=== PATIENT | female | born 1965 | race Caucasian/White ===

== ENCOUNTER 2017-02-09 06:54 | Day surgery (SDC) | payer MEDICAID, BC ==
[2017-02-06 13:49] VITALS: BMI 32.5
[~2017-02-09 06:54] MED LIST: LACTATED RINGERS 1,000 ML IV SCH
[2017-02-09 07:06] VITALS: TEMP 98.7
[2017-02-09] MEDS ORDERED: LIDOCAINE 1% 20 ML VIAL (10MG/ML) FOR IV START SQ ONE (07:12)
[2017-02-09 07:32] LABS: Glucose,Whole Blood 189 mg/dL (75-99)
[2017-02-09 07:32] LABS: Glucose,Whole Blood 185 mg/dL (75-99)
[2017-02-09] MEDS ORDERED: PROPOFOL 10 MG/ML 20 ML VIAL IV ONE (07:37)
[2017-02-09 08:03] VITALS: RESP 18
--- NOTE | 2017-02-09 08:03 | P.PCN ---
Date of Procedure: 02/09/17 Procedure(s) Performed: BRIEF HISTORY: Patient is a 51-year-old pleasant and white female, scheduled for an elective colonoscopy as a part of screening for colon neoplasia. PROCEDURE PERFORMED: Colonoscopy. PREOPERATIVE DIAGNOSIS: Screening for colon cancer. IV sedation per Anesthesia. PROCEDURE: After informed consent was obtained, the patient, was brought into the endoscopy unit. IV sedation was administered by Anesthesia under continuous monitoring. Digital rectal examination was normal. Initially the Olympus CF- 160 flexible video colonoscope was then inserted in the rectum, gradually advanced into the cecum without any difficulty. Careful examination was performed as the scope was gradually being withdrawn. Ileocecal valve and the appendiceal orifice were visualized and appeared normal. Prep was excellent. Mucosa of the cecum, ascending colon, transverse colon, descending colon, sigmoid colon, and rectum appeared normal. Retroflexion was performed in the rectum and no lesions were seen. The patient tolerated the procedure well. IMPRESSION: Normal-appearing colon from rectum to cecum with no evidence of colorectal neoplasia. RECOMMENDATIONS: Findings of this examination were discussed with the patient as well as a family. She was advised to have a repeat screening colonoscopy in 10 years.
[2017-02-09 08:18] VITALS: BP 132/74; PULSE 88
== END 2017-02-09 08:54 | disposition home or self-care (01) ==
LOC: ORWHC2ENDO 06:54
PROVIDERS: ATTEND Internal Medicine Gastroenterology
DX: Z12.11 Encounter for screening for malignant neoplasm of colon (principal); I10 Essential (primary) hypertension; E78.5 Hyperlipidemia, unspecified; E11.9 Type 2 diabetes mellitus without complications; Z79.84 Long term (current) use of oral hypoglycemic drugs; Z79.82 Long term (current) use of aspirin; Z79.899 Other long term (current) drug therapy; Z88.0 Allergy status to penicillin
CPT/HCPCS: J2704; G0121

== ENCOUNTER → 2017-02-12 | Outpatient (CLI) | payer MEDICAID, BC ==
--- NOTE | 2017-02-13 11:14 | MM ---
Reason for exam: screening (asymptomatic). Last mammogram was performed 1 year ago. History: Patient is postmenopausal. Family history of premenopausal breast cancer in mother at age 50 and breast cancer in maternal aunt at age 40. Took hormonal contraceptives for 1 year beginning at age 22. Physical Findings: A clinical breast exam by your physician is recommended on an annual basis and results should be correlated with mammographic findings. MG 3D Screening Mammo W/Cad Bilateral CC and MLO view(s) were taken. Prior study comparison: February 18, 2016, left breast MG work up mamm w CAD LT. February 11, 2016, bilateral MG screening mammo w CAD. There are scattered fibroglandular densities. There is no discrete abnormality. No significant changes when compared with prior studies. ASSESSMENT: Negative, BI-RAD 1 RECOMMENDATION: Routine screening mammogram of both breasts in 1 year.
== END | disposition home or self-care (01) ==
LOC: RADMAMWWP 07:59
PROVIDERS: ATTEND Internal Medicine Geriatric Medicine
DX: Z12.31 Encounter for screening mammogram for malignant neoplasm of breast (principal)
CPT/HCPCS: 77063; G0202

== ENCOUNTER → 2017-02-27 | Outpatient (CLI) | payer MEDICAID, BC ==
--- NOTE | 2017-02-27 07:48 | MR ---
EXAMINATION TYPE: MR knee LT wo con DATE OF EXAM: 02/27/2017 COMPARISON: 05/16/2011 HISTORY: pain in lt knee TECHNIQUE: Multiplanar, multisequence imaging of the left knee is performed without IV contrast. FINDINGS: MEDIAL MENISCUS: Globular signal posterior horn medial meniscus most typical of mucoid degeneration. Fibrillation of the femoral articular cartilage. LATERAL MENISCUS: Linear tear posterior horn medial meniscus. Fibrillation articular lateral femoral cartilage. CRUCIATE LIGAMENTS: The anterior and posterior cruciate ligaments are intact and unremarkable. COLLATERAL LIGAMENTS: The medial collateral ligament and lateral collateral ligament complex are inta ct and unremarkable. EXTENSOR MECHANISM: There is a [id number] suprapatellar bursal fluid collection. Thinning and chondromalacia patellar cartilage involving the medial and lateral retinaculum greater medially. Intr asubstance signal within the distal margin of the patellar tendon suggests mild patellar tendinitis n ear the insertion of the tibia. Markedly improved from the previous exam. EFFUSION: Small to moderate suprapatellar bursal fluid collection POPLITEAL CYST: No popliteal/ballesteros cyst. BONE MARROW SIGNAL: No focal abnormal marrow signal is appreciated. IMPRESSION: 1. Linear tear posterior horn medial meniscus 2. Chondromalacia involving the articular femoral and patellofemoral joint with evidence of osteoarth ritis. 3. Marked improvement of appearance of the patellar tendon with some residual intrasubstance tear whi ch may been the basis of chronic tendinopathy near the tibial insertion. Correlate clinically. 4. Correlate for medial plica syndrome
== END | disposition home or self-care (01) ==
LOC: RADMRIMAIN 06:29
PROVIDERS: ATTEND Orthopaedic Surgery Sports Medicine
DX: M25.462 Effusion, left knee (principal); M25.562 Pain in left knee

== ENCOUNTER 2017-03-29 09:54 | Day surgery (SDC) | payer MEDICAID, BC ==
[~2017-03-29 09:54] MED LIST changes: +DEXAMETHASONE SOD PHOSPHATE 10 MG/ML 1 ML VIAL IV ONE; +MIDAZOLAM 2 MG/2 ML VIAL IV PRN; +ONDANSETRON 4 MG/2 ML VIAL IVP ONE; +Pre Op ABX Message 1 EACH MISC MISCELLANE ONE
[2017-03-29 10:22] VITALS: TEMP 98.2
[2017-03-29] MEDS ORDERED: LIDOCAINE 1% 20 ML VIAL (10MG/ML) FOR IV START INTRADERMA ONE (10:36)
[2017-03-29 10:37] LABS: Glucose,Whole Blood 199 mg/dL (75-99)
[2017-03-29] MEDS ORDERED: SCOPOLAMINE 1.5MG/72HR PATCH TRANSDERM ONE (10:41)
[2017-03-29] MEDS ORDERED: NEOSTIGMINE 1 MG/ML 10 ML VIAL ONE (11:26)
[2017-03-29] MEDS ORDERED: GLYCOPYRROLATE 0.2 MG/ML 2 ML VIAL ONE (11:26)
[2017-03-29] MEDS ORDERED: LIDOCAINE 1% INJ 10MG/ML (20 ML MDV) ONE (11:26)
[2017-03-29] MEDS ORDERED: MIDAZOLAM 2 MG/2 ML VIAL ONE (11:26)
[2017-03-29] MEDS ORDERED: fentaNYL (PF) 50 MCG/ML 2 ML AMP ONE (11:26)
[2017-03-29] MEDS ORDERED: ROCURONIUM BROMIDE 10 MG/ML 10 ML VIAL IV ONE (11:26)
[2017-03-29] MEDS ORDERED: SUCCINYLCHOLINE CHLORIDE 100 MG/5 ML SYR IV ONE (11:26)
[2017-03-29] MEDS ORDERED: PROPOFOL 10 MG/ML 20 ML VIAL IV ONE (11:26)
[2017-03-29] MEDS ORDERED: SODIUM CHLORIDE 0.9% 50 ML with CLINDAMYCIN 900 MG IV ONE ×2 (11:48)
[2017-03-29] MEDS ORDERED: BUPIVACAIN-EPI 0.5%-1:200,000 30 ML VIAL SQ ONE ×2 (11:50→12:02)
[2017-03-29] MEDS ORDERED: KETOROLAC 30 MG/ML 1 ML VIAL IVP ONE (12:36)
[2017-03-29] MEDS ORDERED: LACTATED RINGERS 1,000 ML IV ONE (12:43)
[2017-03-29] MEDS: HYDROmorphone 1 MG/ML 1 ML SYRINGE IVP PRN ×2 (12:50→12:55)
[2017-03-29 13:32] VITALS: RESP 16
[2017-03-29 14:01] VITALS: BP 146/86; PULSE 97
--- NOTE | 2017-04-05 19:07 | OP ---
DATE OF PROCEDURE: 03/29/2017 PREOPERATIVE DIAGNOSIS: Left knee medial meniscus tear. POSTOPERATIVE DIAGNOSES: 1. Left knee medial meniscus tear. 2. Left knee lateral meniscus tear. 3. Left knee second infrapatellar plica. 4. 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 PROCEDURES PERFORMED: 1. Left knee arthroscopic partial medial meniscectomy. 2. Left knee arthroscopic partial lateral meniscectomy. 3. Left knee arthroscopic lysis of adhesions. 4. Left knee chondroplasty of the medial femoral condyle. SURGEON: Omar Mercer MD ANESTHESIA: General endotracheal. ESTIMATED BLOOD LOSS: Minimal. TOURNIQUET: None. DRAINS: None. COMPLICATIONS: None apparent. DISPOSITION: Post Anesthesia Care Unit. INDICATIONS: Josseline is a very pleasant 51-year-old female who had a twisting injury to her left knee. Physical examination and MRI were consistent with tearing of the medial meniscus. A long discussion was held with regard to treatment options. At this point, she does wish to proceed with operative intervention. The risks were explained to the patient which include but are not limited to risk of infection, nerve damage, bleeding, pain and a small risk of deep vein thrombosis which could lead to fatal pulmonary embolism. The patient understands these risks and wishes to proceed with the surgical procedure. EXAMINATION UNDER ANESTHESIA: Range of motion: right full, left full. Effusion: right none, left mild. Darius: right with good end point, left with good endpoint. Pivot shift: right grade 0, left grade 0. Posterior drawer: right with good endpoint, left with good end point. Varus laxity: right none, left none. Valgus laxity: right none, left none. External rotation: right normal, left normal. ARTHROSCOPIC FINDINGS: ( ) patellar pouch: Normal. Medial gutter: Normal. Lateral gutter: Normal. Patella: Diffuse grade 1 change. Trochlea head: Diffuse grade 2 change in the central aspect of the trochlea. Patellar tracking: Normal. Medial femoral condyle: Diffuse area of grade 2 to 3 change on the ( ) surface of the medial femoral condyle. Medial tibial plateau: Normal chondral surfaces. Medial meniscus: Complex tear of the posterior horn of the medial meniscus. Lateral femoral condyle: Diffuse grade 2 change. Lateral tibial plateau: Diffuse grade 2 change. Lateral meniscus: Complex tear of the posterior horn of the lateral meniscus. Anterior cruciate ligament: Normal. Posterior cruciate ligament: Normal. Infrapatellar notch: Thickened infrapatellar plica. DETAILS OF PROCEDURE: The patient was identified in the preoperative holding area. Surgical site was marked by both the patient and myself. She was given 2 grams of Ancef IV for prophylactic purposes. She was then transferred to the operative suite, where she was placed supine on the operating room table. General anesthetic was then administered and dosed by the anesthesia department without apparent complications. An examination under anesthesia was then performed of both knees. The findings were noted as above. Tourniquet was then placed high on the left upper thigh, well padded in preparation for surgery. The tourniquet was not inflated throughout the entire procedure. The patient's left lower extremity was then prepped and draped in the usual sterile fashion. Standard surgical pause was then undertaken to ensure that we were operating on the correct site and that appropriate preoperative antibiotics had been given. All staff in the room were in agreement and we proceeded. The knee was then insufflated with 120 mL sterile saline solution. This was done to gradually distend the joint. A standard inferolateral portal was then made. A 30-degree arthroscope was introduced into the suprapatellar pouch. The arthroscopic pump pressure was set at 60 mmHg and maintained at that level throughout the entire case. Next, utilizing an 18 gauge spinal needle, we topically localized the placement. The inferomedial portal was made under direct visualization. Standard diagnostic arthroscopy of the knee was then performed. The findings were noted as above. Attention was then first drawn to the infrapatellar notch. There was very thickened infrapatellar plica. This was released with a biter and debrided back to stable tissue utilizing a synovial shaver. Hemostasis was achieved with an Arthrocare wand. Attention was then drawn to the lateral compartment. She had a macerated, degenerative-type tear of the posterior horn of the lateral meniscus. This was through the white-white zone of the meniscus. This tear was deemed irreparable. This meniscus tear was then debrided back to stable tissue utilizing a combination of biter and synovial shaver. Appropriately 50% of the posterior horn and middle body of the lateral meniscus remained intact after the debridement. The anterior and posterior root attachments were carefully inspected and found to be intact. Attention was then drawn to the medial compartment of the knee. She had diffuse grade 2 to 3 chondromalacia at the medial femoral condyle. There were no areas of grade 4 change. This was on the weight-bearing surface. There were some loose chondral flaps noted about. These were gently debrided using the synovial shaver back to stable cartilage tissue. Attention was then drawn to the medial meniscus. She had a complex tear of the posterior horn of the medial meniscus. There was a fairly sizeable flap tear. It was very degenerative in nature. This tear was also deemed irreparable. The meniscus tear was then debrided back to stable tissue utilizing a combination of biter and synovial shaver. Approximately 25% to 50% of the posterior horn of the medial meniscus remained intact after debridement. The anterior and posterior root attachments were carefully inspected and found to be intact. Next I placed the arthroscope medial to the posterior cruciate ligament through the notch into the posteromedial compartment of the knee. There were no surgical flap tears or loose bodies noted. The posterior root attachment was more carefully inspected and found to be intact. At this point in time, no further examination was deemed necessary. The knee was surgically irrigated and then drained with an outflow cannula. The arthroscopic equipment was removed from the knee. The arthroscopic portals were closed with 3-0 nylon interrupted suture. Sterile compressive dressing was then applied. All sponge and needle counts were deemed correct prior to closure. The patient tolerated the procedure without apparent complication. The tourniquet was not inflated throughout the procedure. She was transferred to the recovery room in stable condition. ISMAEL
== END 2017-03-29 14:24 | disposition home or self-care (01) ==
LOC: OR 09:54
PROVIDERS: ATTEND Orthopaedic Surgery Sports Medicine
DX: S83.242A Other tear of medial meniscus, current injury, left knee, initial encounter (principal); S83.282A Other tear of lateral meniscus, current injury, left knee, initial encounter; X50.1XXA Overexertion from prolonged static or awkward postures, initial encounter; M67.52 Plica syndrome, left knee; M94.262 Chondromalacia, left knee; I10 Essential (primary) hypertension; E78.5 Hyperlipidemia, unspecified; E11.9 Type 2 diabetes mellitus without complications; Z79.84 Long term (current) use of oral hypoglycemic drugs; Z79.899 Other long term (current) drug therapy; Z88.0 Allergy status to penicillin
CPT/HCPCS: 29880; J2250; J1100; J2710; J2405; J2001; J3010; J1885; J1170; J0330; J2704

== ENCOUNTER → 2018-02-13 | Outpatient (CLI) | payer MEDICAID ==
--- NOTE | 2018-02-13 12:02 | MM ---
Reason for exam: screening (asymptomatic). Last mammogram was performed 1 year ago. History: Patient is postmenopausal. Family history of premenopausal breast cancer in mother at age 50 and breast cancer in maternal aunt at age 40. Took hormonal contraceptives for 1 year beginning at age 22. Physical Findings: A clinical breast exam by your physician is recommended on an annual basis and results should be correlated with mammographic findings. MG 3D Screening Mammo W/Cad Bilateral CC and MLO view(s) were taken. Prior study comparison: February 12, 2017, bilateral MG 3d screening mammo w/cad. February 18, 2016, left breast MG work up mamm w CAD LT. There are scattered fibroglandular densities. There is chronic nodularity bilaterally. There is no discrete abnormality. ASSESSMENT: Benign, BI-RAD 2 RECOMMENDATION: Routine screening mammogram of both breasts in 1 year.
== END | disposition home or self-care (01) ==
LOC: RADMAMWWP 07:50
PROVIDERS: ATTEND Internal Medicine Geriatric Medicine
DX: Z12.31 Encounter for screening mammogram for malignant neoplasm of breast (principal)
CPT/HCPCS: 77063; 77067

== ENCOUNTER → 2019-01-22 | Outpatient (CLI) | payer MEDICAID ==
--- NOTE | 2019-01-23 08:15 | MR ---
EXAMINATION TYPE: MR shoulder LT wo con DATE OF EXAM: 01/22/2019 COMPARISON: None HISTORY: Pain in left shoulder TECHNIQUE: Multiplanar, multisequence imaging of the left shoulder is performed without contrast. FINDINGS: Rotator Cuff: Rotator cuff tendons: Normal course to their insertion sites. No suspicious signal abno rmality transversing the rotator cuff is evident. There is a small amount of subacromial bursal fluid . Mild to moderate tendinosis of the supraspinatus tendon may be present. No retraction or muscle atr ophy is evident. Acromioclavicular Joint: There is hypertrophy with some inferior spurring which can contribute to imp ingement syndrome. Glenohumeral Joint: Humerus articulates with the glenoid. Small joint effusion is present. Labrum: The labrum appears grossly intact given limitation of non-arthrogram study. Biceps Tendon: Long head of the biceps tendon is within the bicipital groove. This is surrounded by f luid. A moderate tendinosis should be considered. Bone marrow signal: No focal abnormal marrow signal is appreciated. Other: No additional significant abnormality is appreciated. IMPRESSION: 1. Tendinosis of the supraspinatus tendon and of the long head of the biceps tendon. 2. No rotator cuff tendon tear is identified. 3. Small joint effusion.
== END | disposition home or self-care (01) ==
LOC: RADMRIMAIN 13:24
PROVIDERS: ATTEND Orthopaedic Surgery Sports Medicine
DX: M75.22 Bicipital tendinitis, left shoulder (principal); M67.814 Other specified disorders of tendon, left shoulder; E11.9 Type 2 diabetes mellitus without complications

== ENCOUNTER → 2019-02-14 | Outpatient (CLI) | payer MEDICAID ==
--- NOTE | 2019-02-18 13:50 | MM ---
Reason for exam: screening (asymptomatic). Last mammogram was performed 1 year ago. History: Patient is postmenopausal. Family history of premenopausal breast cancer in mother at age 50 and breast cancer in maternal aunt at age 40. Took hormonal contraceptives for 1 year beginning at age 22. Physical Findings: A clinical breast exam by your physician is recommended on an annual basis and results should be correlated with mammographic findings. MG 3D Screening Mammo W/Cad Bilateral CC and MLO view(s) were taken. Prior study comparison: February 13, 2018, bilateral MG 3d screening mammo w/cad. February 12, 2017, bilateral MG 3d screening mammo w/cad. The breast tissue is heterogeneously dense. This may lower the sensitivity of mammography. No significant changes when compared with prior studies. ASSESSMENT: Benign, BI-RAD 2 RECOMMENDATION: Routine screening mammogram of both breasts in 1 year.
== END ==
LOC: RADMAMWWP 07:57
PROVIDERS: ATTEND Obstetrics & Gynecology
DX: Z12.31 Encounter for screening mammogram for malignant neoplasm of breast (principal)
CPT/HCPCS: 77063; 77067

== ENCOUNTER → 2020-04-14 | Outpatient (CLI) | payer MEDICAID ==
--- NOTE | 2020-04-15 13:14 | MM ---
Reason for exam: screening (asymptomatic). Last mammogram was performed 1 year and 2 months ago. History: Patient is postmenopausal. Family history of premenopausal breast cancer in mother at age 50 and breast cancer in maternal aunt at age 40. Took hormonal contraceptives for 1 year beginning at age 22. Physical Findings: A clinical breast exam by your physician is recommended on an annual basis and results should be correlated with mammographic findings. MG 3D Screening Mammo W/Cad Bilateral CC and MLO view(s) were taken. Prior study comparison: February 14, 2019, bilateral MG 3d screening mammo w/cad. February 13, 2018, bilateral MG 3d screening mammo w/cad. There are scattered fibroglandular densities. No significant changes when compared with prior studies. ASSESSMENT: Benign, BI-RAD 2 RECOMMENDATION: Routine screening mammogram of both breasts in 1 year.
== END | disposition home or self-care (01) ==
LOC: RADMAMWWP 07:08
PROVIDERS: ATTEND Obstetrics & Gynecology
DX: Z12.31 Encounter for screening mammogram for malignant neoplasm of breast (principal); Z80.3 Family history of malignant neoplasm of breast
CPT/HCPCS: 77063; 77067

== ENCOUNTER → 2021-04-20 | Outpatient (CLI) | payer MEDICAID, BC ==
--- NOTE | 2021-04-20 11:38 | MM ---
Reason for exam: screening (asymptomatic). Last mammogram was performed 1 year ago. History: Patient is postmenopausal. Family history of premenopausal breast cancer in mother at age 50 and breast cancer in maternal aunt at age 40. Took hormonal contraceptives for 1 year beginning at age 22. Physical Findings: A clinical breast exam by your physician is recommended on an annual basis and results should be correlated with mammographic findings. MG 3D Screening Mammo W/Cad Bilateral CC and MLO view(s) were taken. Prior study comparison: April 14, 2020, bilateral MG 3d screening mammo w/cad. February 14, 2019, bilateral MG 3d screening mammo w/cad. There are scattered fibroglandular densities. ASSESSMENT: Negative, BI-RAD 1 RECOMMENDATION: Routine screening mammogram of both breasts in 1 year.
== END | disposition home or self-care (01) ==
LOC: RADMAMWWP 07:37
PROVIDERS: ATTEND Obstetrics & Gynecology
DX: Z12.31 Encounter for screening mammogram for malignant neoplasm of breast (principal); Z80.3 Family history of malignant neoplasm of breast
CPT/HCPCS: 77063; 77067

== ENCOUNTER → 2022-05-02 | Outpatient (CLI) | payer MEDICAID, BC ==
--- NOTE | 2022-05-03 07:09 | MM ---
Reason for Exam: Screening (asymptomatic). Last mammogram was performed 1 year(s) and 1 month(s) ago. Patient History: Menarche at age 13. First Full-Term at age 25. Hysterectomy at age 35. Postmenopausal. Hormonal Contraceptives for 1 year from age 22 until age 23. Maternal aunt had breast cancer, age 40. Mother had breast cancer, age 50. Risk Values: Kellee 5 year model risk: 2.4%. NCI Lifetime model risk: 15.2%. Prior Study Comparison: 02/14/2019 Bilateral Screening Mammogram, [facility]. 04/14/2020 Bilateral Screening Mammogram, [facility]. 04/20/2021 Bilateral Screening Mammogram, [facility]. Tissue Density: There are scattered fibroglandular densities. Findings: Analyzed By CAD. Chronic nodularity upper outer quadrant both sides. No significant change from prior exams. Overall Assessment: Benign, BI-RAD 2 Management: Screening Mammogram of both breasts in 1 year. 1. Patient should continue monthly self breast exams. 2. A clinical breast exam by your physician is recommended on an annual basis. 3. This exam should not preclude additional follow-up of suspicious palpable abnormalities. Electronically signed and approved by: Nicole Keane M.D. Radiologist
== END | disposition home or self-care (01) ==
LOC: RADMAMWWP 06:59
PROVIDERS: ATTEND Obstetrics & Gynecology
DX: Z12.31 Encounter for screening mammogram for malignant neoplasm of breast (principal); Z80.3 Family history of malignant neoplasm of breast
CPT/HCPCS: 77063; 77067

== ENCOUNTER → 2022-05-03 | Outpatient (CLI) | payer MEDICAID, BC ==
--- NOTE | 2022-05-03 19:26 | MR ---
EXAMINATION TYPE: MR knee LT wo con DATE OF EXAM: 05/03/2022 COMPARISON: MRI left knee 02/27/2017 HISTORY: Left knee pain, pain behind knee, painful kneecap, locking and swelling since 01-20-22 due to trampoline injury. TECHNIQUE: Multiplanar, multisequence imaging of the left knee is performed without IV contrast. FINDINGS: There is some artifact on the exam, likely there is motion MEDIAL MENISCUS: Posterior horn the medial meniscus shows some generalized increased signal suggestin g degenerative change similar to prior, at the lateral extent, sagittal image #22 towards the root th ere is a vertical linear increased signal seen suggesting tear, posterior horn of the medial meniscus shows a caliber change at this level, question some distortion, coronal image #26 LATERAL MENISCUS: Some diffuse globular increased signal is present may be degenerative CRUCIATE LIGAMENTS: The anterior and posterior cruciate ligaments are intact and unremarkable. COLLATERAL LIGAMENTS: Popliteus tendon shows some increased intrinsic signal which may be due to stra in, lateral collateral ligament also shows abnormal increased signal proximally near the origin, ther e is some surrounding edema change. Some increased intrinsic signal in the medial collateral ligament may represent strain grade 1 EXTENSOR MECHANISM: Visualized quadriceps and patellar tendons are intact. EFFUSION: Suprapatellar joint effusion is again seen. POPLITEAL CYST: No popliteal/ballesteros cyst. TRICOMPARTMENT SPACES: Maintained CARTILAGE: Grade III chondromalacia present in the medial compartment along the medial femoral condyl e and also along the lateral femoral condyle, grade 3 to grade IV chondromalacia at the posterior pat jeremias BONE MARROW SIGNAL: Some probable reactive marrow signal change present at the posterior patella and also the proximal tibia at the intercondylar notch level OTHER: Subcutaneous edema changes are present IMPRESSION: Findings consistent with lateral collateral ligamentous strain, suspect tear of the posterior horn th e medial meniscus of questionable acuity. There is a joint effusion. Osteoarthritis. Additional findi ngs above.
== END | disposition home or self-care (01) ==
LOC: RADMRIMAIN 15:20
PROVIDERS: ATTEND Orthopaedic Surgery Sports Medicine
DX: S86.112D Strain of other muscle(s) and tendon(s) of posterior muscle group at lower leg level, left leg, subsequent encounter (principal); M25.462 Effusion, left knee; M17.12 Unilateral primary osteoarthritis, left knee; X58.XXXD Exposure to other specified factors, subsequent encounter

== ENCOUNTER → 2023-05-11 | Outpatient (CLI) | payer MEDICAID, BC ==
--- NOTE | 2023-05-12 23:23 | MM ---
Reason for Exam: Screening (asymptomatic). Last screening mammogram was performed 12 month(s) ago. Patient History: Menarche at age 13. First Full-Term at age 25. Hysterectomy at age 35. Postmenopausal. Hormonal Contraceptives for 1 year from age 22 until age 23. Maternal aunt had breast cancer, age 40. Mother had breast cancer, age 50. Risk Values: Kellee 5 year model risk: 2.5%. NCI Lifetime model risk: 14.9%. Prior Study Comparison: 04/14/2020 Bilateral Screening Mammogram, [facility]. 04/20/2021 Bilateral Screening Mammogram, [facility]. 05/02/2022 Bilateral MG 3D screening mammo w/cad, [facility]. Tissue Density: There are scattered fibroglandular densities. Findings: Analyzed By CAD. Unchanged low axillary tail lymph nodes on both sides. Unchanged focal asymmetry posterior superior right MLO view. There is no suspicious group of microcalcifications or new suspicious mass in either breast. Overall Assessment: Benign, BI-RAD 2 Management: Screening Mammogram of both breasts in 1 year. . Patient should continue monthly self-breast exams. A clinical breast exam by your physician is recommended on an annual basis. This exam should not preclude additional follow-up of suspicious palpable abnormalities. Note on Kellee scores and lifetime risk: 1. A Kellee score greater than 3% is considered moderate risk. If this is the case, consider specialist referral to assess eligibility for a risk reducing agent. 2. If overall lifetime risk for the development of breast cancer is 20% or higher, the patient may qualify for future screening with alternating mammogram and breast MRI. Electronically signed and approved by: Nicole Keane M.D. Radiologist
== END | disposition home or self-care (01) ==
LOC: RADMAMWWP 06:59
PROVIDERS: ATTEND Obstetrics & Gynecology
DX: Z12.31 Encounter for screening mammogram for malignant neoplasm of breast (principal); Z80.3 Family history of malignant neoplasm of breast; Z78.0 Asymptomatic menopausal state
CPT/HCPCS: 77063; 77067

== ENCOUNTER → 2023-10-18 | Outpatient (CLI) | payer MEDICAID, BC ==
--- NOTE | 2023-10-18 18:42 | CA ---
Stress Echo Report Josseline Blas Age: 58 Gender: F : 1965 Exam Date: 10/18/2023 09:22 Exam Location: [facility] Stress Ht (in): 65 Wt (lb): 179 Ordering Physician: Kailash Mehta MD Referring Physician: Kailash Mehta MD Funeral Service Apprentice: Zane Corona Technologist Procedure CPT: Indication: I20.9 Angina ICD-9 Codes: Rhythm: Patient History: Cardiac Medications: Medications in past 24 hours: Contrast: N/A Stress Results Protocol: Luis Enrique Total dose(mL): Exercise Duration (min:sec): 9:[address] Depression (mm): Angina Score: Freeman Score: METS: 10.3 Resting HR: 102 Resting BP: 126 / 47 Peak HR: 175 Peak BP: 176 / 51 Max Predicted HR: 162 108 % Max Predicted HR Target HR: 138 Double Product: 19214 Stress Summary: BP Response: Reason for Termination: Maximal effort/unable to continue Cardiac Symptoms: no symptoms ECG Analysis Resting ECG: Stress ECG: Arrhythmia: Echo Analysis Resting Echo: Peak Echo Analysis: MEASUREMENTS (Male/Female) Normal Values CONCLUSIONS No ECG or echocardiographic evidence for ischemia Dr. Zach Crowder MD (Electronically Signed) Final Date: 18 October 2023 18:41
== END | disposition home or self-care (01) ==
LOC: RADNMMAIN 09:02
PROVIDERS: ATTEND Internal Medicine Geriatric Medicine
DX: I20.9 Angina pectoris, unspecified (principal)
CPT/HCPCS: 93351

== ENCOUNTER → 2023-10-22 | Outpatient (CLI) | payer MEDICAID, BC ==
--- NOTE | 2023-10-22 09:52 | XR ---
EXAMINATION TYPE: XR chest 2V DATE OF EXAM: 10/22/2023 9:05 AM CLINICAL INDICATION:Female, 58 years old with history of R06.02 SOB; [facility] COMPARISON: Chest radiographs from 12/11/2011 TECHNIQUE: XR chest 2V Frontal and lateral views of the chest. FINDINGS: Lungs/Pleura: There is no evidence of pleural effusion, focal consolidation, or pneumothorax. Pulmonary vascularity: Unremarkable. Heart/mediastinum: Cardiomediastinal silhouette is unremarkable. Musculoskeletal: No acute osseous pathology. Other findings: None IMPRESSION: No acute cardiopulmonary disease/process.
== END | disposition home or self-care (01) ==
LOC: RADXRMAIN 08:56
PROVIDERS: ATTEND Internal Medicine Geriatric Medicine
DX: R06.02 Shortness of breath (principal)
CPT/HCPCS: 71046

== ENCOUNTER → 2024-06-09 | Outpatient (CLI) | payer MEDICAID, BC ==
--- NOTE | 2024-06-09 09:56 | MM ---
Reason for Exam: Screening (asymptomatic). Last mammogram was performed 1 year(s) and 1 month(s) ago. Patient History: Menarche at age 13. First Full-Term at age 25. Hysterectomy at age 35. Postmenopausal. Hormonal Contraceptives for 1 year from age 22 until age 23. Maternal aunt had breast cancer, age 40. Maternal grandmother had ovarian cancer at or over age 50. Mother had breast cancer, age 50. Risk Values: Kellee 5 year model risk: 2.7%. NCI Lifetime model risk: 14.2%. Prior Study Comparison: 02/12/2017 Bilateral Screening Mammogram, [facility]. 02/13/2018 Bilateral Screening Mammogram, [facility]. 02/14/2019 Bilateral Screening Mammogram, [facility]. 04/14/2020 Bilateral Screening Mammogram, [facility]. 04/20/2021 Bilateral Screening Mammogram, [facility]. 05/02/2022 Bilateral MG 3D screening mammo w/cad, [facility]. 05/11/2023 Bilateral MG 3D screening mammo w/cad, [facility]. Tissue Density: There are scattered areas of fibroglandular density. Findings: Analyzed By CAD. There is no suspicious group of microcalcifications or new suspicious mass in either breast. Overall Assessment: Negative, BI-RAD 1 Management: Screening Mammogram of both breasts in 1 year. . Patient should continue monthly self-breast exams. A clinical breast exam by your physician is recommended on an annual basis. This exam should not preclude additional follow-up of suspicious palpable abnormalities. Note on Kellee scores and lifetime risk: 1. A Kellee score greater than 3% is considered moderate risk. If this is the case, consider specialist referral to assess eligibility for a risk reducing agent. 2. If overall lifetime risk for the development of breast cancer is 20% or higher, the patient may qualify for future screening with alternating mammogram and breast MRI. Electronically signed and approved by: Sajan Angulo M.D. Radiologis
== END | disposition home or self-care (01) ==
LOC: RADMAMWWP 06:56
PROVIDERS: ATTEND Internal Medicine Geriatric Medicine
DX: Z12.31 Encounter for screening mammogram for malignant neoplasm of breast
CPT/HCPCS: 77063; 77067

== ENCOUNTER → 2025-03-12 | Outpatient (CLI) | payer MEDICAID, BC ==
--- NOTE | 2025-03-12 08:50 | MR ---
EXAMINATION TYPE: MR lumbar spine wo con DATE OF EXAM: 03/12/2025 8:11 AM COMPARISON: 09/06/2013 CLINICAL INDICATION: Female, 59 years old with history of M54.59 OTHER LOW BACK PAIN; PHH, Low back p ain into bijan lower extremities TECHNIQUE: Multi planar, multi sequence imaging was performed utilizing: T1-weighted, T2-weighted, a nd turbo inversion recovery imaging of the lumbar spine. IV Contrast: mL (None, if empty) FINDINGS: Alignment: The lumbar vertebral bodies have preserved heights with grade 1 anterolisthesis of L4 on L 5 and L5 on S1. Bilateral spondylolysis at these levels. Cord: The conus medullaris and the distal spinal cord appear unremarkable with regards to their signa l intensity and morphology. Bones/Discs: Degeneration changes throughout the spine with osteophyte formation and facet joint arth ropathy. Intervertebral disc signal is maintained. No abnormal inversion recovery signal to suggest b porsha edema. T12-L1: No evidence of significant spinal canal stenosis or neural foraminal stenosis. L1-L2: No evidence of significant spinal canal stenosis or neural foraminal stenosis. L2-L3: No evidence of significant spinal canal stenosis or neural foraminal stenosis. L3-L4: No evidence of significant spinal canal stenosis or neural foraminal stenosis. L4-L5: Disc uncovering from grade 1 anterolisthesis and facet joint arthropathy with mild spinal trevor l stenosis and moderate right and severe left neural foraminal stenosis. L5-S1: Disc uncovering with central disc protrusion without significant spinal canal stenosis. From g rade 1 anterolisthesis and facet joint arthropathy with mild spinal canal stenosis and moderate bilat eral neural foraminal stenosis. No significant spinal canal or neural foraminal stenosis in the remainder of the visualized levels. Other findings: None. IMPRESSION: 1. Overall exam is slightly progressed compared to prior in 2012. 2. No definitive evidence of significant spinal canal stenosis. 3. Moderate disc degeneration with associated osteoarthritic changes. 4. Grade 1 anterolisthesis of L4 and L5 and L5-S1. Bilateral spondylolysis at L4-L5. And L5-S1. This results in severe left L4-L5 neural foraminal stenosis and moderate bilateral L5-S1 and right L4-L5 neural foraminal stenosis. Additionally there is a central disc protrusion at L5-S1 without significa nt spinal canal stenosis. [facility], , 03/12/2025 8:47 AM
== END | disposition home or self-care (01) ==
LOC: RADMRIMAIN 07:20
PROVIDERS: ATTEND Orthopaedic Surgery Orthopaedic Surgery of the Spine
DX: M51.360 Other intervertebral disc degeneration, lumbar region with discogenic back pain only (principal); M43.17 Spondylolisthesis, lumbosacral region; M43.16 Spondylolisthesis, lumbar region; M48.061 Spinal stenosis, lumbar region without neurogenic claudication; M51.27 Other intervertebral disc displacement, lumbosacral region
CPT/HCPCS: 72148